=== PATIENT | female | born 1970 | race African-American/Black ===

== ENCOUNTER 2020-06-27 02:11 | Emergency (ER) | payer MEDICAID, OTHER ==
[~2020-06-27] VITALS: Ht 172.7 cm; Wt 73.0 kg
[2020-06-27] MEDS ORDERED: IBUPROFEN 600MG TABLET PO ONE (02:45)
[2020-06-27] MEDS ORDERED: TETANUS, DIPHTHERIA, PERTUSSIS VAC/PF 0.5ML (>7YR OLD) IM ONE (02:45)
[2020-06-27] MEDS ORDERED: BACITRACIN ZINC OINT UDPKT TOP ONE ×2 (02:45→04:30)
[2020-06-27] MEDS ORDERED: LIDOCAINE HCL/PF 1% 10 MG/ML 5ML VIAL IJ ONE (02:45)
[2020-06-27] MEDS ORDERED: HYDROCODONE/ACETAMINOPHEN 5/325MG TABLET PO ONE (03:45)
[2020-06-27] MEDS ORDERED: LIDOCAINE HCL/PF 1% 10 MG/ML 5ML VIAL ONE (04:37)
[2020-06-27 04:44] VITALS: BP 149/92
== END 2020-06-27 06:56 | disposition home or self-care (01) ==
LOC: ER 02:11
DX: S93.491A Sprain of other ligament of right ankle, initial encounter (principal); S91.012A Laceration without foreign body, left ankle, initial encounter; S90.32XA Contusion of left foot, initial encounter; S90.31XA Contusion of right foot, initial encounter; W18.39XA Other fall on same level, initial encounter; Y93.89 Activity, other specified; Y92.89 Other specified places as the place of occurrence of the external cause; Y99.8 Other external cause status; F17.290 Nicotine dependence, other tobacco product, uncomplicated; D64.9 Anemia, unspecified
CPT/HCPCS: 12004; 73610; 73630; 90471; 90715; 99284; J3490